=== PATIENT | female | born 1990 | race Caucasian/White ===

== ENCOUNTER → 2018-02-19 15:08 | Outpatient (CLI) | payer OTHER, MEDICAID, SELFPAY ==
[2018-02-20 14:35] LABS: Strep Grp B PCR NEG for Grp B Strep
== END ==
PROVIDERS: PCP Family Medicine; Visit Provider Family Medicine
DX: Z34.93 Encounter for supervision of normal pregnancy, unspecified, third trimester (principal); Z3A.36 36 weeks gestation of pregnancy
CPT/HCPCS: 87653

== ENCOUNTER 2018-03-02 17:15 | Outpatient (CLI) | payer OTHER, MEDICAID, SELFPAY | END 2018-03-02 18:15 | disposition home or self-care (01) | LOC: OB 03-03 14:50 | PROVIDERS: PCP Family Medicine; Visit Provider Family Medicine | DX: Z03.71 Encounter for suspected problem with amniotic cavity and membrane ruled out (principal); Z3A.38 38 weeks gestation of pregnancy | CPT/HCPCS: 59025; 84112; G0378; G0379 ==

== ENCOUNTER 2018-03-11 03:15 | Inpatient (IN) | payer OTHER, MEDICAID, SELFPAY ==
[2018-03-11 04:11] VITALS: BP 112/80
[2018-03-11 04:38] LABS: Add Manual Diff / Slide Review NO; Basophils Percent Auto 1.2 % (0-2); Eosinophils Percent Auto 1.1 % (2-4); Hematocrit 28.8 % (36-46); Lymphocytes Percent Auto 21.3 % (25-40); Mean Corpuscular HGB Conc 31.3 % (30-36); Mean Corpuscular Hemoglobin 21.8 PG (26-34); Mean Corpuscular Volume 69.8 fL (80-100); Monocytes Percent Auto 10.2 % (3-14); Neutrophils Absolute Auto 10800 /uL (3000-5900); Neutrophils Percent Auto 66.2 % (50-75); Platelet Count 243 X10^3/uL (150-400); Red Blood Cell Count 4.13 X10^6/uL (4.0-5.2); White Blood Cell Count 16.3 X10^3/uL (4.5-11.0)
[2018-03-11 05:06] LABS: Anisocytosis 2+; Microcytosis 3+
--- NOTE | 2018-03-11 08:52 | PM.OBHP.1 ---
OB HPI Date/Time Date of admission: 03/11/18 Date Patient Seen: 03/11/18 Time Patient Seen: 08:30 History of Present Illness Chief complaint: LABOR & DELIVERY : 3 Para: 1 Estimated Date of Delivery: 03/15/18 Estimated Gestational Age (weeks): 39w3d Narrative: Rosana Juares is a 27 yo at 39w3d who presented with SROM. Pt reports waking with contractions early this morning, and then feeling that she was leaking fluid around 2:30am. She denies any vaginal bleeding. She has been feeling her baby move regularly. History of Present care: good care Dating criteria: LMP confirmed by 1st trimester US Ultrasounds: normal 1st trimester US and abnormal US findings (marginal previa) Abnormal ultrasound findings: resolved on repeat ultrasound Obstetrical complications: none Medical complications: none Preadmission Labs Blood type: O (+) positive -: Antibody screen: negative, GBS status: negative, HBsAG: negative, HIV: negative and RPR/VDLR: negative -: Chlamydia screen: not detected and Gonorrhea screen: not detected -: Rubella: immune HCT: 41.4 PAP: Normal Integrated screen: Negative 1 hr GTT: 101 Prior (ies) History: 04/2009: 40 wks gestation, , 7lb9oz, epidural for anesthesia Evaluation Evaluation Baseline heart rate: 145 Variability: Moderate (11-25) monitor accelerations: Present monitor decelerations: Absent Contraction Frequency (minutes): 5 Uterine Contraction Intensity: Moderate Category of Tracing: I Laboratory results: Laboratory Tests 03/11/18 03/11/18 04:25 04:25 WBC 16.3 H RBC 4.13 Hgb 9.0 L Hct 28.8 L MCV 69.8 L MCH 21.8 L MCHC 31.3 RDW 18.0 H Plt Count 243 Neut % (Auto) 66.2 Lymph % (Auto) 21.3 L [place] % (Auto) 10.2 Eos % (Auto) 1.1 L Baso % (Auto) 1.2 Neut # (Auto) 63442 H RBC Morphology Not Reportable Anisocytosis 2+ H Microcytosis 3+ H Blood Type O Positive Antibody Screen Negative PFSH Social History Smoking Status: Never smoker Meds Home Medications Medication Instructions Recorded Confirmed Type Unisom (diphenhydramine) 25 mg PO DIRECTED PRN 03/11/18 03/11/18 History promethazine 25 mg [place] DIRECTED 03/11/18 03/11/18 History Allergies Allergy/AdvReac Type Severity Reaction Status Date / Time sertraline [From Zoloft] Allergy Rash Verified 03/11/18 04:16 Sulfa (Sulfonamide Allergy Vomiting Verified 03/11/18 04:16 Antibiotics) Review of Systems Review of Systems All systems reviewed & are unremarkable except as noted in HPI and below Exam Vital Signs (past 8 hours): Vital Signs - 8 hr 03/11/18 04:11 Blood Pressure 112/80 Const General: cooperative, healthy appearing, comfortable, well developed and well groomed Nutritional Appearance: average body habitus Orientation: alert, awake and oriented x3 Resp Auscultation: clear to auscultation bilaterally Cardio Rate: regular rate Rhythm: regular rhythm GI Palpation: soft and No tender Auscultation: normal bowel sounds Manual OB Exam: dilated 3, effaced 75% and station -1 Presentation: vertex Estimated Weight (lbs): 7 Amniotic Fluid: clear Objective Labs Result Diagrams: 03/11/18 04:25 Labs: Laboratory Results - last 24 hr 03/11/18 03/11/18 04:25 04:25 WBC 16.3 H RBC 4.13 Hgb 9.0 L Hct 28.8 L MCV 69.8 L MCH 21.8 L MCHC 31.3 RDW 18.0 H Plt Count 243 Neut % (Auto) 66.2 Lymph % (Auto) 21.3 L [place] % (Auto) 10.2 Eos % (Auto) 1.1 L Baso % (Auto) 1.2 Neut # (Auto) [id number] H RBC Morphology Not Reportable Anisocytosis 2+ H Microcytosis 3+ H Blood Type O Positive Antibody Screen Negative Assessment and Plan (1) 39 weeks gestation of : Current visit: Yes Status: Acute (2) SROM (spontaneous rupture of membranes): Current visit: Yes Status: Acute 27 yo at 39w3d here with SROM in active labor. Rupture at 2:30am. Minimal cervical change since presentation, but contractions increasing in intensity. GBS negative, Rh positive. - Expectant management, anticipate - FHT reassuring - GBS negative, no antibiotics needed - Epidural for pain control if pt desires - Recheck cervix in 2hrs, if no significant cervical change will start pitocin. If contractions decrease in intensity or frequency prior to that time, will start pitocin earlier.
--- NOTE | 2018-03-11 09:08 | P.HPOB_ITS ---
OB HPI Date/Time Date of admission: 03/11/18 Date Patient Seen: 03/11/18 Time Patient Seen: 08:30 History of Present Illness Chief complaint: LABOR & DELIVERY : 3 Para: 1 Estimated Date of Delivery: 03/15/18 Estimated Gestational Age (weeks): 39w3d Narrative: Rosana Juares is a 27 yo at 39w3d who presented with SROM. Pt reports waking with contractions early this morning, and then feeling that she was leaking fluid around 2:30am. She denies any vaginal bleeding. She has been feeling her baby move regularly. History of Present care: good care Dating criteria: LMP confirmed by 1st trimester US Ultrasounds: normal 1st trimester US and abnormal US findings (marginal previa) Abnormal ultrasound findings: resolved on repeat ultrasound Obstetrical complications: none Medical complications: none Preadmission Labs Blood type: O (+) positive -: Antibody screen: negative, GBS status: negative, HBsAG: negative, HIV: negative and RPR/VDLR: negative -: Chlamydia screen: not detected and Gonorrhea screen: not detected -: Rubella: immune HCT: 41.4 PAP: Normal Integrated screen: Negative 1 hr GTT: 101 Prior (ies) History: 04/2009: 40 wks gestation, , 7lb9oz, epidural for anesthesia Evaluation Evaluation Baseline heart rate: 145 Variability: Moderate (11-25) monitor accelerations: Present monitor decelerations: Absent Contraction Frequency (minutes): 5 Uterine Contraction Intensity: Moderate Category of Tracing: I Laboratory results: Laboratory Tests 03/11/18 03/11/18 04:25 04:25 WBC 16.3 H RBC 4.13 Hgb 9.0 L Hct 28.8 L MCV 69.8 L MCH 21.8 L MCHC 31.3 RDW 18.0 H Plt Count 243 Neut % (Auto) 66.2 Lymph % (Auto) 21.3 L [place] % (Auto) 10.2 Eos % (Auto) 1.1 L Baso % (Auto) 1.2 Neut # (Auto) 30093 H RBC Morphology Not Reportable Anisocytosis 2+ H Microcytosis 3+ H Blood Type O Positive Antibody Screen Negative PFSH Social History Smoking Status: Never smoker Meds Home Medications Medication Instructions Recorded Confirmed Type Unisom (diphenhydramine) 25 mg PO DIRECTED PRN 03/11/18 03/11/18 History promethazine 25 mg [place] DIRECTED 03/11/18 03/11/18 History Allergies Allergy/AdvReac Type Severity Reaction Status Date / Time sertraline [From Zoloft] Allergy Rash Verified 03/11/18 04:16 Sulfa (Sulfonamide Allergy Vomiting Verified 03/11/18 04:16 Antibiotics) Review of Systems Review of Systems All systems reviewed & are unremarkable except as noted in HPI and below Exam Vital Signs (past 8 hours): Vital Signs - 8 hr 3 03/11/18 04:11 Blood Pressure 112/80 Const General: cooperative, healthy appearing, comfortable, well developed and well groomed Nutritional Appearance: average body habitus Orientation: alert, awake and oriented x3 Resp Auscultation: clear to auscultation bilaterally Cardio Rate: regular rate Rhythm: regular rhythm GI Palpation: soft and No tender Auscultation: normal bowel sounds Manual OB Exam: dilated 3, effaced 75% and station -1 Presentation: vertex Estimated Weight (lbs): 7 Amniotic Fluid: clear Objective Labs Result Diagrams: 03/11/18 04:25 Labs: Laboratory Results - last 24 hr 03/11/18 03/11/18 04:25 04:25 WBC 16.3 H RBC 4.13 Hgb 9.0 L Hct 28.8 L MCV 69.8 L MCH 21.8 L MCHC 31.3 RDW 18.0 H Plt Count 243 Neut % (Auto) 66.2 Lymph % (Auto) 21.3 L [place] % (Auto) 10.2 Eos % (Auto) 1.1 L Baso % (Auto) 1.2 Neut # (Auto) [id number] H RBC Morphology Not Reportable Anisocytosis 2+ H Microcytosis 3+ H Blood Type O Positive Antibody Screen Negative Assessment and Plan (1) 39 weeks gestation of : Current visit: Yes Status: Acute (2) SROM (spontaneous rupture of membranes): Current visit: Yes Status: Acute 27 yo at 39w3d here with SROM in active labor. Rupture at 2: 30am. Minimal cervical change since presentation, but contractions increasing in intensity. GBS negative, Rh positive. - Expectant management, anticipate - FHT reassuring - GBS negative, no antibiotics needed - Epidural for pain control if pt desires - Recheck cervix in 2hrs, if no significant cervical change will start pitocin. If contractions decrease in intensity or frequency prior to that time, will start pitocin earlier.
[2018-03-11] MEDS: LACTATED RINGERS 1,000 ML 100 ML IV ×2 (10:10→11:18)
[2018-03-11] MEDS: OXYTOCIN PREMIX 30 UNIT/500 ML PLAST..BAG IV (12:26)
--- NOTE | 2018-03-11 18:33 | PM.OBPRVD ---
Events: Labor Augmentation Delivery date: 03/11/18 Intrapartal events: None Induction method: none Delivery augmentation: pitocin Delivery monitor: external FHT Route of delivery: Laceration description: Perineal - 2nd Degree Delivery repair: chromic (3-O) Estimated blood loss (mL): 250 Anesthesia type: Epidural Narrative: PROCEDURE: at 39w3d presented in labor with SROM and was admitted to Labor and Delivery. The patient progressed through the 1st stage over 6 hours. Pain was controlled with an epidural. Her labor was augmented with pitocin. The patient progressed through the 2nd stage over 0.5 hours and delivered a viable male infant with APGARs 4/9/9 at [time] via . The perineum and vagina were inspected with small second degree laceration repaired with 3-O Chromic PREPROCEDURE DIAGNOSIS: Intrauterine at 39w3d GBS negative RH positive POSTPROCEDURE DIAGNOSIS: Intrauterine at 39w3d, delivered Same as preprocedure Spontaneous vaginal delivery INDUCTION: No LABOR AUGMENTATION: Pitocin ROM APPEARANCE: Clear BABY A DELIVERY TIME: 17:46 BABY A OUTCOME: Viable BABY A SEX: Male BABY A WEIGHT: 8lb1oz (3682g) BABY A PRESENTATION: Vertex BABY A POSITION: ENA BABY A NUCHAL CORD: Loose x1 and body cord x1 BABY A # CORD VESSELS: 3 BABY A CORD GASES OBTAINED: No PLACENTA DELIVERY TIME: 17:54 PLACENTAL DELIVERY TYPE: Spontaneous PLACENTA APPEARANCE: Intact Baby 1: Infant gender: Male Presentation: vertex Placenta delivery description: Spontaneous cord vessel description: 3 Vessels score (1 min): 4 score (5 min): 9 score (10 min): 9
[2018-03-11] MEDS: IBUPROFEN 600 MG TABLET PO (23:41)
[2018-03-12 06:28] LABS: Hematocrit 27.1 % (36-46); Hemoglobin 8.5 g/dL (12.0-16.0)
[2018-03-12] MEDS: IBUPROFEN 600 MG TABLET PO ×2 (07:02→17:47)
[2018-03-12] MEDS: DERMOPLAST SPRAY 20% 60 ML 1 SPRAY TOP (08:08)
[2018-03-12] MEDS: DOCUSATE 250 MG CAPSULE PO (08:11)
[2018-03-12] MEDS: PRENATAL VIT,CALC/IRON/FOLIC 1 TABLET 1 TAB PO (08:11)
[2018-03-12] MEDS: LANOLIN OINT 7 GM 1 APPLIC TOP (08:13)
--- NOTE | 2018-03-12 08:44 | PM.OBPN.1 ---
Subjective - OB Interval history: The patient is doing well this morning. Baby is breast-feeding with good latch. Her pain is adequately controlled with ibuprofen. She does have significant cramping, especially when breast-feeding. The patient's lochia is appropriate at this point. She is ambulating without difficulty and is passing flatus frequently. She has voided as well. Patient comments: no complaints baby status: doing well feeding status: exclusively breast feeding Date Patient Seen: 03/12/18 Time Patient Seen: 08:00 Exam Narrative Exam Narrative: General: No acute distress, sitting comfortably in bed, appears well CV: Regular rate and rhythm, no murmurs Respiratory: Clear to auscultation bilaterally Abdomen: Soft, normoactive bowel sounds, nontender, fundus firm below the umbilicus Objective Labs Result Diagrams: 03/12/18 06:05 Labs: Laboratory Results - last 24 hr 03/12/18 06:05 Hgb 8.5 L Hct 27.1 L Assessment & Plan (1) 39 weeks gestation of : Status: Acute Current Visit: Yes (2) SROM (spontaneous rupture of membranes): Status: Acute Current Visit: Yes (3) Anemia: Status: Acute Current Visit: Yes Plan day: 1 plan OB: routine care Comments: 27yo day 1 status post spontaneous vaginal delivery without complications. Patient doing well. Is significantly anemic however is asymptomatic. - iron supplement - continue breast feeding support - normal care Time Spent With Patient Total time spent is greater than 50% in coordination of care (as documented) at patient's floor/unit and/or counseling patient: 25 - 35 minutes
--- NOTE | 2018-03-12 08:47 | P.PNOB_ITS ---
Subjective - OB Interval history: The patient is doing well this morning. Baby is breast- feeding with good latch. Her pain is adequately controlled with ibuprofen. She does have significant cramping, especially when breast-feeding. The patient 's lochia is appropriate at this point. She is ambulating without difficulty and is passing flatus frequently. She has voided as well. Patient comments: no complaints [place] baby status: doing well feeding status: exclusively breast feeding Date Patient Seen: 03/12/18 Time Patient Seen: 08:00 Exam Narrative Exam Narrative: General: No acute distress, sitting comfortably in bed, appears well CV: Regular rate and rhythm, no murmurs Respiratory: Clear to auscultation bilaterally Abdomen: Soft, normoactive bowel sounds, nontender, fundus firm below the umbilicus Objective Labs Result Diagrams: 03/12/18 06:05 Labs: Laboratory Results - last 24 hr 03/12/18 06:05 Hgb 8.5 L Hct 27.1 L Assessment & Plan (1) 39 weeks gestation of : Status: Acute Current Visit: Yes (2) SROM (spontaneous rupture of membranes): Status: Acute Current Visit: Yes (3) Anemia: Status: Acute Current Visit: Yes Plan day: 1 plan OB: routine care Comments: 27yo day 1 status post spontaneous vaginal delivery without complications. Patient doing well. Is significantly anemic however is asymptomatic. - iron supplement - continue breast feeding support - normal care Time Spent With Patient Total time spent is greater than 50% in coordination of care (as documented) at patient's floor/unit and/or counseling patient: 25 - 35 minutes
[2018-03-12] MEDS: FERROUS GLUCONATE 324 MG TABLET PO (16:32)
[2018-03-13 00:07] VITALS: TEMP 36.6
[2018-03-13] MEDS: IBUPROFEN 600 MG TABLET PO ×2 (00:07→08:10)
[2018-03-13] MEDS: DOCUSATE 250 MG CAPSULE PO (08:10)
[2018-03-13] MEDS: FERROUS GLUCONATE 324 MG TABLET PO (08:11)
[2018-03-13] MEDS: PRENATAL VIT,CALC/IRON/FOLIC 1 TABLET 1 TAB PO (08:11)
--- NOTE | 2018-03-13 08:58 | PM.OBDS.1 ---
Discharge Providers Date of admission: 03/11/18 04:11 Primary care physician: Melinda Velasquez MD Consults: 03/11/18 19:15 Consult to Music Grapher Routine Comment: Discharge provider: Melinda Velasquez MD Discharge Date: 03/13/18 Summary Date Patient Seen: 03/13/18 Time Patient Seen: 08:45 Hospital Course: The patient presented in active labor with SROM. She progressed to complete with Pitocin augmentation. She had a spontaneous vaginal delivery of a viable baby boy on 03/11/2018. A 2nd degree perineal laceration was then repaired. , there were no complications. At the time of discharge she was ambulating, voiding, and passing flatus without difficulty. Her lochia was decreasing appropriately. Her pain was well controlled. She was breast-feeding with good latch. She did have significant anemia, however remained asymptomatic. She will be started on iron at home twice a day. Peripartum Data Delivery Method: Natural Vaginal Laceration description: Perineal - 2nd Degree Procedures: Spontaneous vaginal delivery with repair 2nd degree perineal laceration complications: none [place] 1: Gender: Male Disposition of : home Discharge Diagnosis (1) 39 weeks gestation of : Status: Acute (2) SROM (spontaneous rupture of membranes): Status: Acute (3) Anemia: Status: Acute (4) Spontaneous vaginal delivery: Status: Acute Status at Discharge Functional status at discharge: independent ambulation Overall status at discharge: patient is progressing back to baseline Time Spent with Patient Total time spent providing and/or coordinating discharge services: Greater than 30 minutes Specific discharge activities: No intercourse for 6 weeks Gradual return to normal activities Objective Labs Result Diagrams: 03/12/18 06:05 Discharge Plan Discharge Plan Discharge comment: No intercourse for 6 weeks Discharge Med Rec/Prescriptions Prescriptions: New acetaminophen 325 mg Tablet 650 mg PO Q6HR PRN (Reason: Pain, Mild) Qty: 30 RF: 0 benzocaine-menthol [Dermoplast (with menthol)] 20-0.5 % Aerosol 1 spray Topical Q1HR PRN (Reason: perineal pain) Qty: 15 RF: 0 ibuprofen 600 mg Tablet 600 mg PO Q6HR PRN (Reason: Pain, Mild) Qty: 30 RF: 0 docusate sodium 250 mg Capsule 250 mg PO DAILY Qty: 60 RF: 0 lanolin [[id number]-Nojyrn] Cream 1 applic Topical PRN PRN (Reason: Tenderness) Qty: 15 RF: 0 ferrous gluconate 324 mg (38 mg iron) Tablet 324 mg PO BID Qty: 60 RF: 0 [id number] [Prenatabs Rx] 29 mg iron- 1 mg Tablet 1 tab PO DAILY Qty: 30 RF: 0 Continue promethazine 25 mg suppository 25 mg [place] DIRECTED RF: 0 Discontinued Unisom (diphenhydramine) 25 mg tablet 25 mg PO DIRECTED PRN (Reason: Sleep) RF: 0 Follow up/Referrals: Melinda Velasquez MD [Primary Care Provider] - 6 Weeks Discharge Orders: Discharge (Order); Ordered 03/13/18 Ordered By: Melinda Velasquez Provider Discharge Instructions Diet: Diet as Tolerated Wound Care Report to your healthcare provider any signs of infection, such as:: chills, fever, increased pain and unusual drainage Visit Report/Discharge Packet Instructions: DI for Labor and Delivery, Vaginal Discharge Data Primary Care Provider: Melinda Velasquez Attending Provider: Melinda Velasquez Admit Date/Time: 03/11/18 04:11
--- NOTE | 2018-03-13 09:01 | P.DS_ITS ---
Discharge Providers Date of admission: 03/11/18 04:11 Primary care physician: Melinda Velasquez MD Consults: 03/11/18 19:15 Consult to Diesel Mechanic Helper Routine Comment: Discharge provider: Melinda Velasquez MD Discharge Date: 03/13/18 Summary Date Patient Seen: 03/13/18 Time Patient Seen: 08:45 Hospital Course: The patient presented in active labor with SROM. She progressed to complete with Pitocin augmentation. She had a spontaneous vaginal delivery of a viable baby boy on 03/11/2018. A 2nd degree perineal laceration was then repaired. , there were no complications. At the time of discharge she was ambulating, voiding, and passing flatus without difficulty. Her lochia was decreasing appropriately. Her pain was well controlled. She was breast- feeding with good latch. She did have significant anemia, however remained asymptomatic. She will be started on iron at home twice a day. Peripartum Data Delivery Method: Natural Vaginal Laceration description: Perineal - 2nd Degree Procedures: Spontaneous vaginal delivery with repair 2nd degree perineal laceration complications: none 1: Gender: Male Disposition of : home Discharge Diagnosis (1) 39 weeks gestation of : Status: Acute (2) SROM (spontaneous rupture of membranes): Status: Acute (3) Anemia: Status: Acute (4) Spontaneous vaginal delivery: Status: Acute Status at Discharge Functional status at discharge: independent ambulation Overall status at discharge: patient is progressing back to baseline Time Spent with Patient Total time spent providing and/or coordinating discharge services: Greater than 30 minutes Specific discharge activities: No intercourse for 6 weeks Gradual return to normal activities Objective Labs Result Diagrams: 03/12/18 06:05 Discharge Plan Discharge Plan Discharge comment: No intercourse for 6 weeks Discharge Med Rec/Prescriptions Prescriptions: New acetaminophen 325 mg Tablet 650 mg PO Q6HR PRN (Reason: Pain, Mild) Qty: 30 RF: 0 benzocaine-menthol [Dermoplast (with menthol)] 20-0.5 % Aerosol 1 spray Topical Q1HR PRN (Reason: perineal pain) Qty: 15 RF: 0 ibuprofen 600 mg Tablet 600 mg PO Q6HR PRN (Reason: Pain, Mild) Qty: 30 RF: 0 docusate sodium 250 mg Capsule 250 mg PO DAILY Qty: 60 RF: 0 lanolin [Izn-O-Sniadc] Cream 1 applic Topical PRN PRN (Reason: Tenderness) Qty: 15 RF: 0 ferrous gluconate 324 mg (38 mg iron) Tablet 324 mg PO BID Qty: 60 RF: 0 [id number] [Prenatabs Rx] 29 mg iron- 1 mg Tablet 1 tab PO DAILY Qty: 30 RF: 0 Continue promethazine 25 mg suppository 25 mg [place] DIRECTED RF: 0 Discontinued Unisom (diphenhydramine) 25 mg tablet 25 mg PO DIRECTED PRN (Reason: Sleep) RF: 0 Follow up/Referrals: Melinda Velasquez MD [Primary Care Provider] - 6 Weeks Discharge Orders: Discharge (Order); Ordered 03/13/18 Ordered By: Melinda Velasquez Provider Discharge Instructions Diet: Diet as Tolerated Wound Care Report to your healthcare provider any signs of infection, such as:: chills, fever, increased pain and unusual drainage Visit Report/Discharge Packet Instructions: DI for Labor and Delivery, Vaginal Discharge Data Primary Care Provider: Melinda Velasquez Attending Provider: Melinda Velasquez Admit Date/Time: 03/11/18 04:11
== END 2018-03-13 13:30 | disposition home or self-care (01) | DRG 560 ==
PROVIDERS: Admitting Provider Family Medicine; PCP Family Medicine; Visit Provider Family Medicine
DX: O69.81X0 Labor and delivery complicated by cord around neck, without compression, not applicable or unspecified (principal); Z3A.39 39 weeks gestation of pregnancy; Z37.0 Single live birth; O70.1 Second degree perineal laceration during delivery; D64.9 Anemia, unspecified
CPT/HCPCS: 01967; 36415; 59050; 59409; 84112; 85014; 85018; 85025; 86850; 86900; 86901; G0378; G0379; J2590

== ENCOUNTER → 2018-03-19 09:48 | Outpatient (CLI) | payer OTHER, MEDICAID, SELFPAY | PROVIDERS: PCP Family Medicine; Visit Provider Family Medicine | DX: N89.8 Other specified noninflammatory disorders of vagina (principal) | CPT/HCPCS: 87070; 87077; 87147; 87205 ==

== ENCOUNTER → 2019-06-14 11:21 | Outpatient (CLI) | payer OTHER, MEDICAID, SELFPAY ==
[2019-06-14 13:05] LABS: Urine Chlamydia NOT DETECTED; Urine N gonorrhoeae NOT DETECTED
== END ==
PROVIDERS: PCP Family Medicine; Visit Provider Physician Assistant
DX: Z11.3 Encounter for screening for infections with a predominantly sexual mode of transmission (principal); N89.8 Other specified noninflammatory disorders of vagina
CPT/HCPCS: 87210; 87491; 87591

== ENCOUNTER → 2019-06-14 12:06 | Outpatient (CLI) | payer OTHER, MEDICAID, SELFPAY ==
[2019-06-14 13:44] LABS: Hepatitis B Surface Antigen NEGATIVE s/c (NEGATIVE)
[2019-06-14 13:59] LABS: HIV 1 & 2 Ab/Ag 4th Gen Combo NEGATIVE (NEGATIVE); Hep C Virus Ab w/Reflex Quant NEGATIVE s/c (NEGATIVE)
[2019-06-16 13:28] LABS: RPR Screen Nonreactive (Nonreactive)
== END ==
PROVIDERS: Family Provider Family Medicine; PCP Family Medicine; Visit Provider Physician Assistant
DX: Z11.3 Encounter for screening for infections with a predominantly sexual mode of transmission (principal); N89.8 Other specified noninflammatory disorders of vagina
CPT/HCPCS: 36415; 86592; 86803; 87210; 87340; 87389; 87491; 87591

== ENCOUNTER → 2020-03-05 10:01 | Outpatient (CLI) | payer OTHER, MEDICAID, SELFPAY ==
--- NOTE | 2020-03-05 10:03 | DI.US.S_ITS ---
PROCEDURE: US ABDOMEN COMPLETE INDICATIONS: NAUSEA AND PAIN TECHNIQUE: Real-time scanning was performed of the abdominal and retroperitoneal organs, with image documentation. COMPARISON: None. FINDINGS: Liver: Liver is normal in size and homogeneous in echotexture. Gallbladder: No findings of gallstones or sludge are seen. The gallbladder wall is not thickened, measuring 3 mm or less. No specific pericholecystic fluid is seen. The sonographic Miguel sign is negative. Biliary ducts: Intrahepatic bile ducts are non-dilated. Extrahepatic bile duct caliber measures 4 mm. Normal is 6-7 mm or less in diameter, or 10 mm or less post-cholecystectomy. Pancreas: Visualized portions of the pancreas are sonographically normal. Spleen: Spleen is normal in size and homogeneous in echotexture. Kidneys: Kidneys are normal in size and echotexture. Right kidney measures 10.6 cm long; left kidney measures 9.4 cm long. No hydronephrosis or nephrolithiasis. No solid masses. Aorta: Visualized aorta is normal in caliber at less than 3 cm. Iliacs: Proximal common iliac arteries are normal in caliber at less than 2.5 cm. IVC: Intrahepatic inferior vena cava is patent. Miscellaneous: No free abdominal fluid. IMPRESSION: The gallbladder demonstrates a normal sonographic appearance. No biliary dilatation is seen. Dictated by: Marty Fay M.D. on 03/05/2020 at 10:55 Approved by: Marty Fay M.D. on 03/05/2020 at 10:56
== END ==
PROVIDERS: Family Provider Family Medicine; PCP Family Medicine; Referring Provider Family Medicine; Visit Provider Family Medicine
DX: R10.33 Periumbilical pain (principal); R11.0 Nausea
CPT/HCPCS: 76700

== ENCOUNTER → 2020-03-15 09:56 | Outpatient (CLI) | payer OTHER, MEDICAID, SELFPAY ==
[2020-03-17 19:07] LABS: Tissue Transglutaminase IgA <2 U/mL (0-3); Tissue Transglutaminase IgG 12 U/mL (0-5)
== END ==
PROVIDERS: Family Provider Family Medicine; PCP Family Medicine; Referring Provider Family Medicine; Visit Provider Family Medicine
DX: R10.9 Unspecified abdominal pain (principal)
CPT/HCPCS: 36415; 83516

== ENCOUNTER → 2020-06-01 13:02 | Outpatient (CLI) | payer OTHER, MEDICAID, SELFPAY ==
[2020-06-02 23:06] LABS: COVID19 Sendout Not Detected (Not Detected)
== END ==
PROVIDERS: Family Provider Family Medicine; PCP Family Medicine; Visit Provider Physician Assistant
DX: Z11.59 Encounter for screening for other viral diseases (principal)
CPT/HCPCS: 87635

== ENCOUNTER → 2020-08-01 16:42 | Outpatient (CLI) | payer OTHER, MEDICAID, SELFPAY ==
[2020-08-01 18:03] LABS: Thyroid Stimulating Hormone 3.32 uIU/mL (0.47-4.68)
== END ==
PROVIDERS: Family Provider Family Medicine; PCP Family Medicine; Referring Provider Family Medicine; Visit Provider Family Medicine
DX: E03.9 Hypothyroidism, unspecified (principal)
CPT/HCPCS: 36415; 84443

== ENCOUNTER → 2021-11-08 13:50 | Outpatient (ROUT) | payer OTHER, MEDICAID, SELFPAY ==
[2021-11-08 15:23] LABS: Urine N gonorrhoeae NOT DETECTED
[2021-11-08 15:26] LABS: Urine Chlamydia NOT DETECTED
== END ==
PROVIDERS: Family Provider Family Medicine; PCP Family Medicine; Visit Provider Family Medicine
DX: Z30.09 Encounter for other general counseling and advice on contraception (principal)
CPT/HCPCS: 81025; 87491; 87591

== ENCOUNTER → 2022-02-17 14:47 | Outpatient (ROUT) | payer OTHER, MEDICAID, SELFPAY ==
[2022-02-17 16:21] LABS: Urine N gonorrhoeae NOT DETECTED
[2022-02-17 16:22] LABS: Urine Chlamydia NOT DETECTED
== END ==
PROVIDERS: Family Provider Family Medicine; PCP Family Medicine; Visit Provider Family Medicine
DX: Z30.430 Encounter for insertion of intrauterine contraceptive device (principal)
CPT/HCPCS: 87491; 87591